=== PATIENT | female | born 1980 | race Caucasian/White ===

== ENCOUNTER → 2018-12-26 | Outpatient (CLI) | payer OTHER ==
--- NOTE | 2018-12-26 13:31 | RAD ---
Indication: Pelvic pain TECHNIQUE: Grayscale, color Doppler and spectral waveform images of the pelvis COMPARISON: None FINDINGS: Uterus is anteverted and measures 11.0 x 5.1 x 6.4 cm. Endometrial stripe measures 3 mm in thickness and is within normal limits. Right ovary measures 3.0 x 1.7 x 1.8 cm and shows blood flow. Left ovary measures 1.6 x 1.5 x 2.3 cm and shows blood flow. No free pelvic fluid. IMPRESSION: Both ovaries show evidence of blood flow. No acute findings. Electronically signed by: Sammy Negrete DO (12/26/2018 1:28 PM) [facility]
== END | disposition home or self-care (01) ==
LOC: US 12:35
PROVIDERS: ATTEND Obstetrics & Gynecology
DX: R10.2 Pelvic and perineal pain (principal)
CPT/HCPCS: 76856